=== PATIENT | male | born 1935 | race Caucasian/White ===

== ENCOUNTER → 2017-04-01 | Outpatient (CLI) | payer MEDICARE | END | disposition home or self-care (01) | LOC: PCVCCLINIC 14:31 | PROVIDERS: ATTEND Internal Medicine Cardiovascular Disease | DX: I25.10 Atherosclerotic heart disease of native coronary artery without angina pectoris (principal); I10 Essential (primary) hypertension; E78.00 Pure hypercholesterolemia, unspecified; I25.2 Old myocardial infarction; J84.9 Interstitial pulmonary disease, unspecified; M35.3 Polymyalgia rheumatica; Z79.82 Long term (current) use of aspirin; Z87.891 Personal history of nicotine dependence | CPT/HCPCS: 80061; 93005; G0463 ==

== ENCOUNTER → 2017-08-19 | Outpatient (CLI) | payer MEDICARE ==
--- NOTE | 2017-08-19 13:02 | PCVCIMAG ---
APPROVED REPORT Study performed: 08/19/2017 08:32:23 EXAM: Comprehensive 2D, Doppler, and color-flow Echocardiogram Patient Location: Echo lab Status: routine BSA: 1.86 HR: 57 bpmBP: 120/60 mmHg Rhythm: NSR Other Information Study Quality: Adequate Risk Factors: Cardiac Risk Factors: HTN, Hyperlipidemia Indications CAD Hypertension/HDD Hyperlipidemia, Stent 2D Dimensions LVEF(%): 67.99 (>50%) IVSd: 10.23 (7-11mm)LVOT Diam: 22.04 (18-24mm) LVDd: 40.90 mm PWd: 11.08 (7-11mm)Ascending Ao: 34.08 (22-36mm) LVDs: 25.57 (25-40mm) Left Atrium: 37.07 (27-40mm) Aortic Root: 32.49 mm LV Single Plane 4CH: 61.60 % LV Single Plane 2CH: 65.74 %Fuentes's LVEF: 63.67 % Biplane EF: 65.2 % Volumes Left Atrial Volume (Systole) Single Plane 4CH: 49.11 mLSingle Plane 2CH: 55.86 mL LA ESV Index: 30.00 mL/m2 Aortic Valve AoV Peak Jay.: 1.93 m/s AO Peak Gr.: 14.87 mmHgLVOT Max P.16 mmHg LVOT Max V: 1.14 m/s JUNIE Vmax: 2.25 cm2 Mitral Valve E/A Ratio: 0.8 MV Decel. Time: 253.26 ms MV E Max Jay.: 1.11 m/s MV A Jay.: 1.42 m/s IVRT: 107.27 ms TDI E/Lateral E': 13.88E/Medial E': 18.50 Medial E' Jay.: 0.06 m/s Lateral E' Jay.: 0.08 m/s Pulmonary Valve PV Peak Jay.: 0.00 m/sPV Peak Gr.: 1.97 mmHg Pulmonary Vein P Vein S: 0.54 m/sP Vein A: 0.26 m/s P Vein D: 0.47 m/sP Vein A Dur.: 110.7 msec P Vein S/D Ratio: 1.15 Tricuspid Valve TR Peak Jay.: 2.85 m/s TR Peak Gr.: 32.40 mmHg Left Ventricle The left ventricle is normal size. There is normal LV segmental wall motion. There is normal left ventricular wall thickness. Left ventricular systolic function is normal. The left ventricular ejection fraction is within the normal range. LVEF is 55-60%. The left ventricular diastolic function is normal. Right Ventricle The right ventricle is normal size. The right ventricular systolic function is normal. Atria The left atrium size is normal. The right atrium size is normal. Aortic Valve Sinus of Valsalva measures 4.1 cm. No aortic regurgitation is present. There is no aortic valvular stenosis. Mitral Valve Moderate mitral annular calcification. Trace mitral regurgitation. No evidence of mitral valve stenosis. Tricuspid Valve The tricuspid valve is normal in structure. Trace tricuspid regurgitation. Pulmonary artery pressure is 39mmhg Pulmonic Valve The pulmonary valve is normal in structure. There is no pulmonic valvular regurgitation. Great Vessels The aortic root is normal in size. IVC is normal in size and collapses with >50% inspiration Pericardium There is no pericardial effusion. <Conclusion> The left ventricle is normal size. There is normal left ventricular wall thickness. LVEF is 55-60%. The left ventricular diastolic function is normal. The right ventricle is normal size. The left atrium size is normal. Sinus of Valsalva measures 4.1 cm. Trace mitral regurgitation. Moderate mitral annular calcification. Trace tricuspid regurgitation. Pulmonary artery pressure is 39mmhg There is no pericardial effusion.
== END | disposition home or self-care (01) ==
LOC: PCVCIMAG 08:30
PROVIDERS: ATTEND Internal Medicine Cardiovascular Disease
DX: I08.1 Rheumatic disorders of both mitral and tricuspid valves (principal); I25.10 Atherosclerotic heart disease of native coronary artery without angina pectoris; I45.10 Unspecified right bundle-branch block; I10 Essential (primary) hypertension; E78.5 Hyperlipidemia, unspecified; Z95.1 Presence of aortocoronary bypass graft
CPT/HCPCS: 93306

== ENCOUNTER → 2017-12-04 | Outpatient (CLI) | payer MEDICARE | END | disposition home or self-care (01) | LOC: PCVCCLINIC 09:57 | DX: I25.10 Atherosclerotic heart disease of native coronary artery without angina pectoris (principal); I10 Essential (primary) hypertension; I45.10 Unspecified right bundle-branch block; R06.09 Other forms of dyspnea; E78.00 Pure hypercholesterolemia, unspecified; R94.31 Abnormal electrocardiogram [ECG] [EKG]; Z87.891 Personal history of nicotine dependence; Z79.82 Long term (current) use of aspirin; Z79.899 Other long term (current) drug therapy | CPT/HCPCS: 36415; 80061; 93005; 93460; G0463 ==

== ENCOUNTER → 2017-12-07 | Outpatient (CLI) | payer MEDICARE ==
[~2017-12-07] MED LIST: DIAZEPAM 10 MG TABLET.; IOHEXOL 350 MG/ML 100 ML VIAL.; IOHEXOL 350 MG/ML 50 ML VIAL.; IV NORMAL SALINE 1000ML BAG 1,000 ML; LIDOCAINE 1% Multi-Dose 20 ML VIAL.; MIDAZOLAM HCL/PF 2 MG/2 ML VIAL.; fentaNYL PF VIAL 100 MCG/2 ML VIAL; hydrALAZINE 20 MG/ML VIAL.
== END | disposition home or self-care (01) ==
LOC: PCVCINTER 08:33
DX: I71.4 Abdominal aortic aneurysm, without rupture (principal); I10 Essential (primary) hypertension; J98.4 Other disorders of lung; I25.2 Old myocardial infarction; I25.10 Atherosclerotic heart disease of native coronary artery without angina pectoris; I73.9 Peripheral vascular disease, unspecified
CPT/HCPCS: 75625; 93460; 93978; C1751; C1760; C1769; C1894; J0360; J1644; J2250; J3010; J7030; Q9967

== ENCOUNTER → 2019-03-08 | Outpatient (CLI) | payer MEDICARE | END | disposition home or self-care (01) | LOC: PCVCCLINIC 13:52 | PROVIDERS: ATTEND Internal Medicine Cardiovascular Disease | DX: I25.10 Atherosclerotic heart disease of native coronary artery without angina pectoris (principal); E78.00 Pure hypercholesterolemia, unspecified; I10 Essential (primary) hypertension; E78.5 Hyperlipidemia, unspecified; G47.34 Idiopathic sleep related nonobstructive alveolar hypoventilation; J84.9 Interstitial pulmonary disease, unspecified; G47.33 Obstructive sleep apnea (adult) (pediatric); Z99.89 Dependence on other enabling machines and devices | CPT/HCPCS: 36415; 80061; 93005; G0463 ==